=== PATIENT | female | born 1990 | race African-American/Black ===

== ENCOUNTER 2018-04-22 23:34 | Emergency (ER) | payer OTHER ==
[~2018-04-22] VITALS: Ht 165.1 cm; Wt 142.0 kg
[~2018-04-22 23:34] MED LIST: HYDR-3164 PO; SULF1TAB24 PO
[2018-04-23] MEDS ORDERED: IBUPROFEN 600 MG TABLET. PO ONE ×2 (00:45)
[2018-04-23] MEDS ORDERED: ORPH100T PO (00:45)
[2018-04-23] MEDS ORDERED: IBUP200T44 PO (00:45)
--- NOTE | 2018-04-23 00:46 | PHYS DOC ---
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 Past Surgical History: Other Additional Past Surgical Histo: LYMPH NODE REMOVAL WHEN BORN Alcohol Use: None Drug Use: None Adult General Chief Complaint Chief Complaint: HEADACHE HPI HPI Patient is a 27 year old [f__sex] who presents with [] Review of Systems Review of Systems Constitutional: Denies fever or chills [] Eyes: Denies change in visual acuity, redness, or eye pain [] HENT: Denies nasal congestion or sore throat [] Respiratory: Denies cough or shortness of breath [] Cardiovascular: No additional information not addressed in HPI [] GI: Denies abdominal pain, nausea, vomiting, bloody stools or diarrhea [] : Denies dysuria or hematuria [] Musculoskeletal: Denies back pain or joint pain [] Integument: Denies rash or skin lesions [] Neurologic: Denies headache, focal weakness or sensory changes [] Endocrine: Denies polyuria or polydipsia [] All other systems were reviewed and found to be within normal limits, except as documented in this note. Allergies Allergies Allergies Coded Allergies Type Severity Reaction Last Updated Verified No Known Drug Allergies 12/09/15 No Physical Exam Physical Exam Constitutional: Well developed, well nourished, no acute distress, non-toxic appearance. [] HENT: Normocephalic, atraumatic, bilateral external ears normal, oropharynx moist, no oral exudates, nose normal. [] Eyes: PERRLA, EOMI, conjunctiva normal, no discharge. [] Neck: Normal range of motion, no tenderness, supple, no stridor. [] Cardiovascular:Heart rate regular rhythm, no murmur [] Lungs & Thorax: Bilateral breath sounds clear to auscultation [] Abdomen: Bowel sounds normal, soft, no tenderness, no masses, no pulsatile masses. [] Skin: Warm, dry, no erythema, no rash. [] Back: No tenderness, no CVA tenderness. [] Extremities: No tenderness, no cyanosis, no clubbing, ROM intact, no edema. [] Neurologic: Alert and oriented X 3, normal motor function, normal sensory function, no focal deficits noted. [] Psychologic: Affect normal, judgement normal, mood normal. [] Current Patient Data Vital Signs Vital Signs Date Time Temp Pulse Resp B/P (MAP) Pulse Ox O2 Delivery O2 Flow Rate FiO2 04/23/18 00:00 98.0 96 20 137/68 (91) 99 Room Air 98.0 Lab Values Laboratory Tests Test 04/23/18 00:27 POC Urine HCG, Qualitative Hcg negative (Negative) EKG EKG [] Radiology/Procedures Radiology/Procedures [] Course & Med Decision Making Course & Med Decision Making Pertinent Labs and Imaging studies reviewed. (See chart for details) [] Dragon Disclaimer Dragon Disclaimer This electronic medical record was generated, in whole or in part, using a voice recognition dictation system. Departure Departure Impression: Primary Impression: Headache Additional Impression: Neck pain Disposition: HOME, SELF-CARE Condition: STABLE Referrals: TYRONE CALDWELL MD (PCP) OLMAN GEE MD Patient Instructions: Headache, FAQs, Tension Headache, [id number] Scripts Ibuprofen (MOTRIN IB) 200 Mg Tablet 600 MG PO TID PRN PRN for PAIN, #60 TAB Prov: JAMIL HEATH DO 04/23/18 Orphenadrine Citrate (ORPHENADRINE CITRATE) 100 Mg Tablet.er 100 MG PO BID PRN for MUSCLE PAIN, #14 Prov: JAMIL HEATH DO 04/23/18 Problem Qualifiers Primary Impression: Headache Headache type: tension-type Headache chronicity pattern: acute headache Intractability: not intractable Qualified Codes: G44.209 - Tension-type headache, unspecified, not intractable JAMIL HEATH DO Apr 23, 2018 00:45
[2018-04-23 00:48] VITALS: BP 132/70
== END 2018-04-23 00:53 | disposition home or self-care (01) ==
LOC: ER 23:34
DX: G44.209 Tension-type headache, unspecified, not intractable (principal); M54.2 Cervicalgia; E66.9 Obesity, unspecified; Z68.43 Body mass index [BMI] 50.0-59.9, adult
CPT/HCPCS: 81025; 99283

== ENCOUNTER 2020-09-10 12:02 | Emergency (ER) | payer OTHER ==
[~2020-09-10] VITALS: Ht 167.6 cm; Wt 165.0 kg
[~2020-09-10 12:02] MED LIST changes: +IBUP200T44 PO; +ORPH100T PO
[2020-09-10 13:23] LABS: BILIRUBIN,URINE NEGATIVE (NEG); CLARITY,URINE CLOUDY; COLOR,URINE YELLOW; NITRITE,URINE NEGATIVE (NEG); PH,URINE 6.5 (<5.0-8.0); PROTEIN,URINE 100 mg/dL (NEG-TRACE)
[2020-09-10 13:28] LABS: BACTERIA,URINE MODERATE /HPF (0-FEW); RBC,URINE 0 /HPF (0-2)
--- NOTE | 2020-09-10 13:49 | RAD ---
Obstetric ultrasound less than 14 weeks with transvaginal: Reason for examination: with abdominal pain. Transabdominally, uterus measures 8.4 x 6.0 x 7.5 cm in greatest dimension. Intrauterine gestational sac appears be present. The ovaries are not identified transabdominally. Transvaginally, there appears to be a dichorionic diamniotic twin gestation. Gestational sacs are nor mal in contour. Twin A shows a crown-rump length of 0.88 cm corresponding to gestational age of 6 weeks 6 days. Yolk sac is identified. Cardiac activity is present with a rate of 139 bpm. Twin B shows crown-rump length of 0.70 cm corresponding to gestational age of 6 weeks 4 days. Yolk sa c is identified. Cardiac activity is present with a rate of 128 bpm. No abnormality seen at the cervix. Right ovary measures 2.4 x 1.9 cm in greatest dimensions and shows good vascular flow but appears to contain a hemorrhagic cyst measuring 2.2 cm in greatest dimension. Left ovary measures 3.5 x 2.0 x 2.0 cm in greatest dimension and appears contained a 1.9 cm hemorrhag ic cyst as well as a couple prominent follicles. No free fluid is seen in the pelvis. IMPRESSION: Viable twin gestation with gestational age estimated at 6 weeks 6 days with estimated date of confine ment of 04/30/2021 which is approximately 1 week younger than clinical dates. Bilateral hemorrhagic cysts measuring 2.2 cm on the right and 1.9 cm on the left. Electronically signed by: Mercedes Sweeney MD (09/10/2020 1:47 PM) KRISSY
[2020-09-10] MEDS ORDERED: ONDANSETRON ODT 4 MG TAB.RAPDIS. ONE (13:54)
[2020-09-10] MEDS ORDERED: ONDANSETRON ODT 4 MG TAB.RAPDIS. PO ONE (14:00)
--- NOTE | 2020-09-10 14:00 | PHYS DOC ---
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 (TERA PEREZ Renae PRODUCT DEVELOPMENT ASSISTANT) Past Surgical History: Other Additional Past Surgical Histo: LYMPH NODE REMOVAL WHEN BORN (TERA PEREZ PRODUCT DEVELOPMENT ASSISTANT) Smoking Status: Never Smoker Alcohol Use: None Drug Use: None (TERA PEREZ PRODUCT DEVELOPMENT ASSISTANT) General Adult EDM: Chief Complaint: ABDOMINAL PAIN IN HPI: HPI: Patient is a 29 year old female 3 para 2 presenting to the ED today complaining of mild intermittent abdominal pain in that only occurs when she is vomiting. Patient reports episodes of vomiting, denies any fever, denies any vaginal bleeding, last menstrual cycle was July 21, 2020. She was seen at [facility] and had a positive test and was seen by the [facility] yesterday. (TERA PEREZ PRODUCT DEVELOPMENT ASSISTANT) Review of Systems: Review of Systems: Constitutional: Denies fever or chills. [] Eyes: Denies change in visual acuity. [] HENT: Denies nasal congestion or sore throat. [] Respiratory: Denies cough or shortness of breath. [] Cardiovascular: Denies chest pain or edema. [] GI: Reports abdominal pain, nausea and vomiting, denies any vaginal bleeding : Denies dysuria. [] Musculoskeletal: Denies back pain or joint pain. [] Integument: Denies rash. [] Neurologic: Denies headache, focal weakness or sensory changes. [] Psychiatric: Denies depression or anxiety. [] (TERA PEREZ Renae PRODUCT DEVELOPMENT ASSISTANT) Heart Score: C/O Chest Pain: N/A Risk Factors: Risk Factors: DM, Current or recent (<one month) smoker, HTN, HLP, family history of CAD, obesity. Risk Scores: Score 0 - 3: 2.5% MACE over next 6 weeks - Discharge Home Score 4 - 6: 20.3% MACE over next 6 weeks - Admit for Clinical Observation Score 7 - 10: 72.7% MACE over next 6 weeks - Early Invasive Strategies (CHRISTERA Renae PRODUCT DEVELOPMENT ASSISTANT) Current Medications: Current Medications Medications (Trade) Dose Ordered Sig/Dagoberto Start Time Stop Time Status Last Admin Dose Admin Ondansetron HCl (Zofran Odt) 4 mg 1X ONCE 09/10/20 14:00 09/10/20 14:01 (TERA PEREZ PRODUCT DEVELOPMENT ASSISTANT) Allergies: Allergies: Allergies Coded Allergies Type Severity Reaction Last Updated Verified No Known Drug Allergies 12/09/15 No (TERA PEREZ PRODUCT DEVELOPMENT ASSISTANT) Physical Exam: PE: Constitutional: Overweight patient, no acute distress, non-toxic appearance. [] HENT: Normocephalic, atraumatic, bilateral external ears normal, oropharynx moist, no oral exudates, nose normal. [] Eyes: PERRLA, EOMI, conjunctiva normal, no discharge. [] Neck: Normal range of motion, no tenderness, supple, no stridor. [] Cardiovascular:Heart rate regular rhythm, no murmur [] Lungs & Thorax: Bilateral breath sounds clear to auscultation [] Abdomen: Bowel sounds normal, soft, no tenderness, no masses, no pulsatile masses. [] Skin: Warm, dry, no erythema, no rash. [] Back: No tenderness, no CVA tenderness. [] Extremities: No tenderness, no cyanosis, no clubbing, ROM intact, no edema. [] Neurologic: Alert and oriented X 3, normal motor function, normal sensory function, no focal deficits noted. [] Psychologic: Affect normal, judgement normal, mood normal. [] (TERA PEREZ PRODUCT DEVELOPMENT ASSISTANT) Current Patient Data: Labs: Laboratory Tests Test 09/10/20 13:05 09/10/20 13:11 Urine Collection Type Unknown Urine Color Yellow Urine Clarity Cloudy Urine pH 6.5 (<5.0-8.0) Urine Specific Marlette 1.025 (1.000-1.030) Urine Protein 100 mg/dL (NEG-TRACE) Urine Glucose (UA) Negative mg/dL (NEG) Urine Ketones (Stick) Negative mg/dL (NEG) Urine Blood Negative (NEG) Urine Nitrite Negative (NEG) Urine Bilirubin Negative (NEG) Urine Urobilinogen Dipstick 1.0 mg/dL (0.2 mg/dL) Urine Leukocyte Esterase Small (NEG) Urine RBC 0 /HPF (0-2) Urine WBC 5-10 /HPF (0-4) Urine Squamous Epithelial Cells Many /LPF Urine Bacteria Moderate /HPF (0-FEW) Urine Mucus Mod /LPF POC Urine HCG, Qualitative Hcg positive (Negative) Vital Signs: Vital Signs Date Time Temp Pulse Resp B/P (MAP) Pulse Ox O2 Delivery O2 Flow Rate FiO2 09/10/20 12:25 98.3 102 18 143/73 (96) 98 Room Air 98.3 (TERA PEREZ APRN) EKG: EKG: [] (TERA PEREZ APRN) Radiology/Procedures: Radiology/Procedures: []PROCEDURE: OB <14 WKS W/TV Obstetric ultrasound less than 14 weeks with transvaginal: Reason for examination: with abdominal pain. Transabdominally, uterus measures 8.4 x 6.0 x 7.5 cm in greatest dimension. Intrauterine gestational sac appears be present. The ovaries are not identified transabdominally. Transvaginally, there appears to be a dichorionic diamniotic twin gestation. Gestational sacs are normal in contour. Twin A shows a crown-rump length of 0.88 cm corresponding to gestational age of 6 weeks 6 days. Yolk sac is identified. Cardiac activity is present with a rate of 139 bpm. Twin B shows crown-rump length of 0.70 cm corresponding to gestational age of 6 weeks 4 days. Yolk sac is identified. Cardiac activity is present with a rate of 128 bpm. No abnormality seen at the cervix. Right ovary measures 2.4 x 1.9 cm in greatest dimensions and shows good vascular flow but appears to contain a hemorrhagic cyst measuring 2.2 cm in greatest dimension. Left ovary measures 3.5 x 2.0 x 2.0 cm in greatest dimension and appears contained a 1.9 cm hemorrhagic cyst as well as a couple prominent follicles. No free fluid is seen in the pelvis. IMPRESSION: Viable twin gestation with gestational age estimated at 6 weeks 6 days with estimated date of confinement of 04/30/2021 which is approximately 1 week younger than clinical dates. Bilateral hemorrhagic cysts measuring 2.2 cm on the right and 1.9 cm on the left. Electronically signed by: Susanne Gomez MD (09/10/2020 1:47 PM) [facility]ON DICTATED and SIGNED BY: SSUANNE GOMEZ MD DATE: 09/10/20 [id number] (TERA PEREZ APRN) Course & Med Decision Making: Course & Med Decision Making Pertinent Labs and Imaging studies reviewed. (See chart for details) This is a 29-year-old female patient presented to the ED today complaining of abdominal pain in . Positive urine hCG, urine noted for small amount of leukocytes, many bacteria, also noted for squamous cells epithelium, urine could likely be contaminated. We will still put her on antibiotics. Patient was discharged on Zofran. OB ultrasound noted for viable twin gestation with gestational age estimated at 6 weeks 6 days with HR for twin A 139 and HR for twin B 128. Bilateral hemorrhagic cysts measuring 2.2 cm on the right and 1.9 cm on the left. Patient was discharged on Zofran. Follow-up with [facility] next week. (TERA PEREZ APRN) Dragon Disclaimer: Dragon Disclaimer: This electronic medical record was generated, in whole or in part, using a voice recognition dictation system. (TERA PEREZ APRN) Departure Departure Impression: Primary Impression: Abdominal pain in Qualified Codes: O26.891 - Other specified related conditions, first trimester; R10.9 - Unspecified abdominal pain Additional Impressions: Urinary tract infection Qualified Codes: N39.0 - Urinary tract infection, site not specified Twin Qualified Codes: O30.001 - Twin , unspecified number of placenta and unspecified number of amniotic sacs, first trimester Disposition: HOME / SELF CARE / HOMELESS Condition: STABLE Referrals: TYRONE CALDWELL MD (PCP) follow with your doctor next week Patient Instructions: ABCs of , - Urinary Tract Infection Additional Instructions: You were evaluated in the emergency room and noted to be 6 weeks 6 days with twin pregnancies. Take Zofran as needed for nausea or vomiting, push fluids. Your urine had small amount of infection, will put you on antibiotics. We encourage you to push fluids. Come back to the ED at any point symptoms worsen Scripts Cephalexin (CEPHALEXIN) 500 Mg Tablet 1 TAB PO BID, #14 TAB Prov: TERA PEREZ APRN 09/10/20 Ondansetron (ONDANSETRON ODT) 4 Mg Tab.rapdis 1 TAB PO PRN Q6-8HRS, #16 TAB Prov: TERA PEREZ APRN 09/10/20 Attending Signature Attending Signature I have participated in the care of this patient and I have reviewed and agree with all pertinent clinical information above including history, exam, and recommendations. (LINDA BHATIA DO) TERA PEREZ APRN September 10, 2020 14:00 LINDA BHATIA DO September 10, 2020 17:42
[2020-09-10] MEDS ORDERED: ONDA4TAB12 PO (14:06)
[2020-09-10] MEDS ORDERED: CEPH500T PO (14:06)
[2020-09-10 14:20] VITALS: BP 134/72
== END 2020-09-10 14:30 | disposition home or self-care (01) ==
LOC: ER 12:02
DX: O23.41 Unspecified infection of urinary tract in pregnancy, first trimester (principal); O30.001 Twin pregnancy, unspecified number of placenta and unspecified number of amniotic sacs, first trimester; Z3A.01 Less than 8 weeks gestation of pregnancy
CPT/HCPCS: 76801; 76817; 81001; 81025; 87086; 99284